=== PATIENT | female | born 1990 | race African-American/Black ===

== ENCOUNTER 2017-01-25 06:31 | Emergency (ER) | payer SELFPAY ==
[~2017-01-25] VITALS: Ht 170.2 cm; Wt 95.0 kg
[2017-01-25 06:34] VITALS: BP 136/84; PULSE 83; RESP 16; TEMP 98.5; O2SAT 99
--- NOTE | 2017-01-25 07:16 | PD ---
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 She is concern about possible foreign body since this is what happened last time she had discharged like this. She denies any fevers, vomiting, abdominal pains, or any other symptoms. Modifying Factors: None Associated Signs & Symptoms: Vaginal discharge, concern for possible vaginal foreign body Risk Factors: None PFSH Past Medical History Anxiety: Yes Diminished Hearing: No Hypertension: Yes (FAMILIAL HX ON MOTHERS SIDE OF HYPERTENSION.) Immunizations Current: Yes Tetanus Vaccination: Unknown Influenza Vaccination: No ?: Unknown : 0 Para: 0 Miscarriage: 0 : 0 Social History Alcohol Use: Yes (OCCASION) Tobacco Use: Yes (occ) Substance Use: No Allergies-Medications (Allergen,Severity, Reaction): Coded Allergies: No Known Allergies (Verified Adverse Reaction, Unknown, 01/25/17) Reported Meds & Prescriptions Reported Meds & Active Scripts Active No Active Prescriptions or Reported Medications Review of Systems Except as stated in HPI: all other systems reviewed are Neg Physical Exam Narrative GENERAL: Well-developed young -Citizen Of [place] female patient currently in no acute distress. Awake and oriented 3. SKIN: Focused skin assessment warm/dry. HEAD: Atraumatic. Normocephalic. EYES: Pupils equal and round. No scleral icterus. No injection or drainage. ENT: No nasal bleeding or discharge. Mucous membranes pink and moist. NECK: Trachea midline. No JVD. CARDIOVASCULAR: Regular rate and rhythm. No murmur appreciated. RESPIRATORY: No accessory muscle use. Clear to auscultation. Breath sounds equal bilaterally. GASTROINTESTINAL: Abdomen soft, non-tender, nondistended. Hepatic and splenic margins not palpable. MUSCULOSKELETAL: No obvious deformities. No clubbing. No cyanosis. No edema. NEUROLOGICAL: Awake and alert. No obvious cranial nerve deficits. Motor grossly within normal limits. Normal speech. PSYCHIATRIC: Appropriate mood and affect; insight and judgment normal. Data Data Last Documented VS Vital Signs Date Time Temp Pulse Resp B/P (MAP) Pulse Ox O2 Delivery O2 Flow Rate FiO2 11/27/17 06:34 98.5 83 16 136/84 (101) 99 Room Air Orders Orders Wet Prep Profile (01/25/17 07:14) Urinalysis - C+S If Indicated (01/25/17 07:14) Ed Urine Pregnancytest Poc (01/25/17 07:14) Ed Discharge Order (01/25/17 07:40) MDM Medical Decision Making Medical Screen Exam Complete: Yes Emergency Medical Condition: Yes Medical Record Reviewed: Yes Differential Diagnosis Vaginal discharge, rule out foreign body Narrative Course Pelvic exam was done, and there was a notable retained tampon. Tampon was removed. There is a pelvic exam was unremarkable. Considering the discharge and a retained tampon, Flagyl was also given for possible underlying BV. Planning to release the patient would follow-up to primary [facility] C[facility] HELPER and as needed. Return for any worsening in discharge, abdominal pains, fevers, or new symptoms as needed. At this point, patient states that she forgets her tampons at times because of irregular menses and I have recommended that she stops using tampons since this is the second time it has happened. Patient states understanding. Diagnosis Primary Impression: Retained vaginal foreign body Med/Other Pt SpecificInfo: Prescription(s) given Scripts Metronidazole (Flagyl) 500 Mg Tab 500 MG PO TID for Infection for 3 Days, TAB 0 Refills Prov: Santy Danielle MD 01/25/17 Disposition: 01 DISCHARGE HOME Condition: Stable Santy Danielle MD Jan 25, 2017 07:16
[2017-01-25] MEDS ORDERED: METR-1 PO (07:42)
== END 2017-01-25 08:23 | disposition home or self-care (01) ==
LOC: NEPC 06:31
DX: T19.2XXA Foreign body in vulva and vagina, initial encounter (principal); F41.9 Anxiety disorder, unspecified; I10 Essential (primary) hypertension; Z72.0 Tobacco use
CPT/HCPCS: 84703; 99284

== ENCOUNTER 2017-03-18 04:48 | Emergency (ER) | payer SELFPAY ==
[~2017-03-18] VITALS: Ht 170.2 cm; Wt 89.5 kg
[~2017-03-18 04:48] MED LIST: METR-1 PO
[2017-03-18 04:50] VITALS: BP 136/83; PULSE 77; TEMP 98.5; O2SAT 100
[2017-03-18] MEDS ORDERED: TRINTAB7 PO (05:03)
--- NOTE | 2017-03-18 06:12 | PD ---
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 Said it is white, clumpy and itchy. Said she had used some monostat. Had some lower abdominal discomfort intermittently. Had some nausea but now resolved. Denies any fever, chest pain, sob, vomiting, vaginal bleeding or discharge. PFSH Past Medical History Medical History: Denies Significant Hx Anxiety: Yes Diminished Hearing: No Hypertension: No (FAMILIAL HX ON MOTHERS SIDE OF HYPERTENSION.) Immunizations Current: Yes Tetanus Vaccination: < 5 Years Influenza Vaccination: No ?: Not LMP: 03/05/16 : 0 Para: 0 Miscarriage: 0 : 0 Past Surgical History Surgical History: No Previous Surgery Social History Alcohol Use: Yes (OCCASION) Tobacco Use: Yes (occ) Substance Use: No Allergies-Medications (Allergen,Severity, Reaction): Coded Allergies: No Known Allergies (Verified Adverse Reaction, Unknown, 03/18/17) Reported Meds & Prescriptions Reported Meds & Active Scripts Active Metronidazole 500 Mg Tab 500 Mg PO BID 7 Days Reported Trinessa (Norgestimate-Ethinyl Estradiol) 0.18/0.215/0.25 mg-35 Mcg Tab 1 Tab PO DAILY Review of Systems Except as stated in HPI: all other systems reviewed are Neg Physical Exam Narrative GENERAL: 27yo F not in distress. SKIN: Focused skin assessment warm/dry. HEAD: Atraumatic. Normocephalic. EYES: Pupils equal and round. No scleral icterus. No injection or drainage. ENT: No nasal bleeding or discharge. Mucous membranes pink and moist. NECK: Trachea midline. No JVD. CARDIOVASCULAR: Regular rate and rhythm. No murmur appreciated. RESPIRATORY: No accessory muscle use. Clear to auscultation. Breath sounds equal bilaterally. GASTROINTESTINAL: Abdomen soft, non-tender, nondistended. No rebound tenderness or guarding. PELVIC: +Small amount of white vaginal discharge. No CMT or adnexal tenderness bilaterally. MUSCULOSKELETAL: No obvious deformities. No clubbing. No cyanosis. No edema. NEUROLOGICAL: Awake and alert. No obvious cranial nerve deficits. Motor grossly within normal limits. Normal speech. PSYCHIATRIC: Appropriate mood and affect; insight and judgment normal. Data Data Last Documented VS Vital Signs Date Time Temp Pulse Resp B/P (MAP) Pulse Ox O2 Delivery O2 Flow Rate FiO2 03/18/17 04:50 98.5 77 136/83 (100) 100 Room Air Orders Orders Gc And Chlamydia Pcr (03/18/17 05:50) Wet Prep Profile (03/18/17 05:50) Urinalysis - C+S If Indicated (03/18/17 05:50) Metronidazole (Flagyl) (03/18/17 08:00) Ed Discharge Order (03/18/17 07:52) Ed Urine Pregnancytest Poc (03/18/17 07:55) Labs Laboratory Tests Test 03/18/17 06:00 03/18/17 06:05 Urine Color YELLOW Urine Turbidity CLEAR Urine pH 6.5 Urine Specific [place] 1.027 Urine Protein TRACE mg/dL Urine Glucose (UA) NEG mg/dL Urine Ketones NEG mg/dL Urine Occult Blood NEG Urine Nitrite NEG Urine Bilirubin NEG Urine Urobilinogen LESS THAN 2.0 MG/DL Urine Leukocyte Esterase TRACE Urine RBC 3 /hpf Urine WBC 1 /hpf Urine Squamous Epithelial Cells 2 /hpf Urine Mucus MOD /lpf Microscopic Urinalysis Comment CULT NOT INDICATED Clue Cells (Wet Prep) PRESENT Vaginal Trichomonas (Wet Prep) PRESENT Vaginal Yeast (Wet Prep) NONE SEEN MDM Medical Decision Making Medical Screen Exam Complete: Yes Emergency Medical Condition: Yes Differential Diagnosis Bacterial vaginosis vs. trichomoniasis Narrative Course 27yo F with c/o white vaginal discharge. No abdominal pain on exam. Pt is tolerating PO. UA showed WBC 1. Culture not indicated. Wet prep showed positive clue cells, positive trichomonas. Pt given 1 dose of metronidazole. negative. Return precautions given. Diagnosis Primary Impression: Bacterial vaginosis Additional Impression: Vaginal trichomoniasis Patient Instructions: General Instructions Departure Forms: Tests/Procedures Additional Instructions: Please follow up with your [facility] WE[facility] OPERATOR in 2-3 days. Return to the ED if symptoms worsen. Med/Other Pt SpecificInfo: Prescription(s) given Scripts Metronidazole (Metronidazole) 500 Mg Tab 500 MG PO BID for Infection for 7 Days, #14 TAB 0 Refills Prov: SkyeLeila 03/18/17 Disposition: 01 DISCHARGE HOME Condition: Stable Leila Cheung DO Mar 18, 2017 06:12
[2017-03-18 06:25] LABS: BILIRUBIN, URINE NEG (NEG); BLOOD, URINE NEG (NEG); GLUCOSE,URINE NEG (NEG); KETONE, URINE NEG (NEG); MUCUS URINE MOD /lpf (OCC); NITRITE,URINE NEG (NEG); PH, URINE 6.5 (5.0-8.5); SQUAMOUS EPITHELIAL CELL URINE 2 /hpf (0-5); URINE COLOR YELLOW (YELLW/STRAW); URINE LEUKOCYTE ESTERASE TRACE (NEG)
[2017-03-18] MEDS ORDERED: METR1TAB76 PO (07:50)
[2017-03-18] MEDS ORDERED: metroNIDAZOLE 500 MG TAB PO ONE (08:00)
== END 2017-03-18 08:22 | disposition home or self-care (01) ==
LOC: NEPE 04:48
DX: N76.0 Acute vaginitis (principal); A59.01 Trichomonal vulvovaginitis
CPT/HCPCS: 81001; 84703; 87210; 87491; 87591; 99283